=== PATIENT | female | born 1980 | race Caucasian/White ===

== ENCOUNTER 2019-10-10 06:02 | Observation (INO) | payer BC ==
--- OUTSIDE RECORDS SUMMARY | 2019-10-10 06:04 | XMS REPORT ---
:1980 [facility] [address] [place] [address] Dr. Caldwell [address] [place] [id number] Care Team Providers Name Role Phone Unavailable Unavailable Unavailable Problems This patient has no known problems. Allergies, Adverse Reactions, Alerts This patient has no known allergies or adverse reactions. Medications This patient has no known medications.
[2019-10-10] MEDS ORDERED: ONDANSETRON 4 MG/2 ML VIAL ONE ×2 (06:27→13:31)
[2019-10-10] MEDS ORDERED: MORPHINE 4 MG/ML SYR ONE (06:27)
[2019-10-10] MEDS ORDERED: NA CHLORIDE 0.9% 1,000 ML ONE (06:27)
[2019-10-10 06:35] LABS: Absolute Lymphocytes (CBC) 2.6 K/uL (0.7-4.9); Hematocrit 44.5 % (36.0-45.0); RBC Red Blood Cell Count 5.14 M/uL (3.86-4.86)
[2019-10-10 06:45] LABS: Albumin 3.8 g/dL (3.4-5.0); Bilirubin Direct 0.1 mg/dL (0-0.2); Bilirubin Total 0.2 mg/dL (0.2-1.0); Protein, Total 7.6 g/dL (6.4-8.2)
--- NOTE | 2019-10-10 07:54 | RAD REPORT ---
EXAM DESCRIPTION: CT - Abdomen Pelvis W Contrast - 10/10/2019 7:12 am CLINICAL HISTORY: Abdominal pain COMPARISON: October 10, 2019 ultrasound TECHNIQUE: Computed axial tomography of the abdomen pelvis was obtained. 100 cc Isovue-300 was admin istered intravenously. Oral contrast was not requested which limits evaluation of bowel. All CT scans are performed using dose optimization technique as appropriate and may include automated exposure control or mA/KV adjustment according to patient size. FINDINGS: Fatty liver. 3 centimeter stone within the gallbladder neck. Gallbladder wall is not thick ened. Biliary tree is normal caliber Spleen, pancreas, adrenal and right kidney appear unremarkable. 4 centimeter left renal cyst There is no evidence of diverticulitis. An abnormal appendix is not visualized Small umbilical hernia IMPRESSION: Cholelithiasis without evidence cholecystitis
--- NOTE | 2019-10-10 07:55 | RAD REPORT ---
EXAM DESCRIPTION: US - Abdomen Exam Limited - 10/10/2019 6:54 am CLINICAL HISTORY: Abdominal pain. COMPARISON: October 08, 2019 ultrasound FINDINGS: The gallbladder wall is not thickened. A 3 centimeter gallstone is present The biliary tree is normal caliber. IMPRESSION: Cholelithiasis without cholecystitis
--- NOTE | 2019-10-10 08:08 | ER ---
Nurse's Notes [facility] Name: Haydee Vela Age: 39 yrs Sex: Female : 1980 Arrival Date: 10/10/2019 Time: 06:02 Bed 8 Private MD: Diagnosis: Cholelithiasis;Unspecified abdominal pain Presentation: 10/09 06:10 Chief complaint: Patient states: "I recently had a ultrasound of my gal bladder and jd3 found out I had gal stones. Dr. Solo wanted me to come to the ER and get a CT scan and report to him my results. I am having a lot of burning pain and nausea this morning.". Coronavirus screen: The patient has NOT traveled to a country currently being monitored by the CDC within the last 14 days. The patient has NOT had contact with any known and/or suspected case of coronavirus. Proceed with normal triage procedures. Ebola Screen: Patient negative for fever greater than or equal to 101.5 degrees Fahrenheit, and additional compatible Ebola Virus Disease symptoms. Initial Sepsis Screen: Does the patient meet any 2 criteria? No. Patient's initial sepsis screen is negative. Does the patient have a suspected source of infection? No. Patient's initial sepsis screen is negative. Risk Assessment: Do you want to hurt yourself or someone else? Patient reports no desire to harm self or others. 06:10 Method Of Arrival: Ambulatory jd3 06:10 Acuity: JOSE RAUL 3 jd3 06:16 Onset of symptoms was October 10, 2019. 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 - Social history:: Smoking status: Patient reports the use of cigarette tobacco products, smokes one-half pack cigarettes per day. Screenin:14 Abuse screen: Denies threats or abuse. Denies injuries from another. Nutritional mg2 screening: No deficits noted. Tuberculosis screening: No symptoms or risk factors identified. Fall Risk IV access (20 points). Assessment: 06:14 General: Appears in no apparent distress. comfortable, Behavior is calm, cooperative. mg2 Pain: Complains of pain in abdomen Pain currently is 7 out of 10 on a pain scale. Quality of pain is described as aching, Pain began gradually, Is intermittent. Neuro: Level of Consciousness is awake, alert, obeys commands, Oriented to person, place, time, situation. Cardiovascular: Capillary refill < 3 seconds Patient's skin is warm and dry. Respiratory: Airway is patent Respiratory effort is even, unlabored, Respiratory pattern is regular, symmetrical. GI: Bowel sounds present X 4 quads. Abd is soft and non tender X 4 quads. Reports lower abdominal pain, upper abdominal pain, nausea. : No signs and/or symptoms were reported regarding the genitourinary system. EENT: No signs and/or symptoms were reported regarding the EENT system. Derm: Skin is intact, is healthy with good turgor, Skin is pink, warm \\T\\ dry. normal. Musculoskeletal: Circulation, motion, and sensation intact. Capillary refill < 3 seconds. 07:52 Reassessment: Patient appears in no apparent distress at this time. Patient and/or tw2 family updated on plan of care and expected duration. Pain level reassessed. Patient is alert, oriented x 3, equal unlabored respirations, skin warm/dry/pink. "the pain is not gone, but the edge is off" Patient states feeling better. 08:35 Reassessment: Patient appears in no apparent distress at this time. Patient and/or jl7 family updated on plan of care and expected duration. Pain level reassessed. Patient is alert, oriented x 3, equal unlabored respirations, skin warm/dry/pink. pain rated 5/10 at this time. Vital Signs: 06:15 BP 127 / 92; Pulse 107; Resp 17 S; Temp 98.2(O); Pulse Ox 100% on R/A; Weight 129.73 kg jd3 (R); Height 5 ft. 6 in. (167.64 cm) (R); Pain 7/10; 07:30 BP 109 / 70; Pulse 75; Resp 17; Pulse Ox 95% on R/A; tw2 07:52 Pain 5/10; tw2 08:29 BP 110 / 74; Pulse 89; Resp 17; Pulse Ox 99% on R/A; tw2 06:15 Body Mass Index 46.16 (129.73 kg, 167.64 cm) jd3 ED Course: 06:02 Patient arrived in ED. cl3 06:06 Eliu Loaiza PA is PHCP. jmm 06:06 Kar Schmid MD is Attending Physician. jmm 06:10 Darshan Mak, RN is Primary Nurse. jd3 06:14 Triage completed. jd3 06:14 No provider procedures requiring assistance completed. Inserted saline lock: 20 gauge mg2 in right antecubital area, using aseptic technique. Blood collected. 06:15 Patient has correct armband on for positive identification. Pulse ox on. NIBP on. Door mg2 closed. Warm blanket given. 06:15 Arm band placed on. mg2 07:00 Primary Nurse role handed off by Darshan Mak RN tw2 07:00 Marisela Melvin RN is Primary Nurse. tw2 08:06 Mathew Solo MD is Hospitalizing Provider. jmm 09:26 Patient admitted, IV remains in place. intact, No redness/swelling at site. jl7 Administered Medications: 06:30 Drug: morphine 4 mg Route: IVP; Site: right antecubital; mg2 06:54 Follow up: Response: No adverse reaction; RASS: Alert and Calm (0) mg2 06:30 Drug: Zofran (Ondansetron) 4 mg Route: IVP; Site: right antecubital; mg2 06:54 Follow up: Response: No adverse reaction mg2 06:30 Drug: NS 0.9% 1000 ml Route: IV; Rate: 1 bolus; Site: right antecubital; mg2 07:30 Follow up: Response: No adverse reaction; IV Status: Completed infusion; IV Intake: jl7 1000ml 08:15 Drug: Mefoxin 1 grams Route: IVPB; Infused Over: 3 mins; Site: right antecubital; jl7 08:18 Follow up: Response: No adverse reaction; IV Status: Completed infusion jl7 Intake: 07:30 IV: 1000ml; Total: 1000ml. jl7 Outcome: 08:07 Decision to Hospitalize by Provider. jmm 09:25 Admitted to Med/surg accompanied by tech, family with patient, via wheelchair, room jl7 430, with chart, Report called to ISHMAEL Walters 09:25 Condition: stable 09:25 Discharge instructions given to patient, family, Instructed on the need for admit, Demonstrated understanding of instructions. 09:31 Patient left the ED. [facility] Signatures: Eliu Loaiza PA PA jmm Wise, Tara, RN RN tw2 Rere Landin RN RN jl7 Darshan Mak RN RN jd3 Jamal Morales RN RN mg2 Lea Castañeda cl3
--- NOTE | 2019-10-10 08:08 | EDPHYS ---
Physician Documentation [facility] Name: Haydee Vela Age: 39 yrs Sex: Female : 1980 Arrival Date: 10/10/2019 Time: 06:02 Bed 8 Private MD: ED Physician Kar Schmid HPI: 10/09 06:16 This 39 yrs old Female presents to ER via Ambulatory with complaints of jmm Abdominal Pain. 06:16 The patient presents with abdominal pain. Onset: The symptoms/episode began/occurred jmm gradually, 2 week(s) ago. The symptoms radiate to Associated signs and symptoms: Pertinent negatives: diarrhea, vomiting. This is a 39 year old female with a history of htn that presents to the ED with complaints of epigastric abdominal pain which radiates to her back and lower abdomen. Patient was evaluated by Dr. Solo last week. Patient states the pain intensified this evening. . 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 - Social history:: Smoking status: Patient reports the use of cigarette tobacco products, smokes one-half pack cigarettes per day. ROS: 06:16 Constitutional: Negative for fever, chills, and weight loss, Cardiovascular: Negative jmm for chest pain, palpitations, and edema, Respiratory: Negative for shortness of breath, cough, wheezing, and pleuritic chest pain. 06:16 Abdomen/GI: Positive for abdominal pain. 06:16 Back: Positive for radiated pain. 06:16 All other systems are negative. Exam: 06:16 Constitutional: This is a well developed, well nourished patient who is awake, alert, jmm and in no acute distress. Head/Face: atraumatic. Eyes: EOMI, no conjunctival erythema appreciated ENT: Moist Mucus Membranes Neck: Trachea midline, Supple Chest/axilla: Normal chest wall appearance and motion. Cardiovascular: Regular rate and rhythm. No edema appreciated Respiratory: Normal respirations, no respiratory distress appreciated 06:16 Back: Normal ROM Skin: General appearance color normal MS/ Extremity: Moves all extremities, no obvious deformities appreciated, no edema noted to the lower extremities Neuro: Awake and alert, normal gait Psych: Behavior is normal, Mood is normal, Patient is cooperative and pleasant 06:16 Abdomen/GI: Inspection: obese Bowel sounds: normal, Palpation: soft, mild abdominal tenderness, in all quadrants. Vital Signs: 06:15 BP 127 / 92; Pulse 107; Resp 17 S; Temp 98.2(O); Pulse Ox 100% on R/A; Weight 129.73 kg jd3 (R); Height 5 ft. 6 in. (167.64 cm) (R); Pain 7/10; 07:30 BP 109 / 70; Pulse 75; Resp 17; Pulse Ox 95% on R/A; tw2 07:52 Pain 5/10; tw2 08:29 BP 110 / 74; Pulse 89; Resp 17; Pulse Ox 99% on R/A; tw2 06:15 Body Mass Index 46.16 (129.73 kg, 167.64 cm) jd3 MDM: 06:15 Patient medically screened. [facility] 08:05 Data reviewed: vital signs, nurses notes. Counseling: I had a detailed discussion with alex the patient and/or guardian regarding: the historical points, exam findings, and any diagnostic results supporting the discharge/admit diagnosis, radiology results, the need for further work-up and treatment in the hospital. ED course: I discussed the patient with Dr. Solo whom accepted admission. . 10/09 06:14 Order name: Basic Metabolic Panel mg2 10/09 06:14 Order name: CBC with Diff mg2 10/09 06:14 Order name: Creatinine for Radiology mg2 10/09 06:14 Order name: Hepatic Function mg2 10/09 06:14 Order name: Lipase mg2 10/09 06:42 Order name: Creatinine (Radiology Only); Complete Time: 07:11 EDMS 10/09 06:43 Order name: CBC with Automated Diff; Complete Time: 07:11 EDMS 10/09 06:46 Order name: Basic Metabolic Panel; Complete Time: 07:11 EDMS 10/09 06:46 Order name: Liver (Hepatic) Function; Complete Time: 07:11 EDMS 10/09 06:46 Order name: Lipase; Complete Time: 07:11 EDMS 10/09 06:48 Order name: Urine Dipstick--Ancillary (enter results) [facility] 10/09 06:48 Order name: Urine --Ancillary (enter results) [facility] 10/09 08:34 Order name: Urine --Ancillary EDMS 10/09 08:34 Order name: Urine Dipstick-Ancillary [facility] 10/09 06:14 Order name: IV Saline Lock; Complete Time: 06:14 [facility] [place] [place] 10/09 06:14 Order name: Labs collected and sent; Complete Time: 06:14 [facility] [place] [place] 10/09 06:16 Order name: Urine Test (obtain specimen); Complete Time: 06:16 [facility] 10/09 06:16 Order name: CT Abd/Pelvis - IV Contrast Only [facility] 10/09 06:16 Order name: US Abdomen Limited [facility] 10/09 07:56 Order name: CT; Complete Time: 08:03 [facility] 10/09 08:05 Order name: US [facility] Administered Medications: 06:30 Drug: morphine 4 mg Route: IVP; Site: right antecubital; mg2 06:54 Follow up: Response: No adverse reaction; RASS: Alert and Calm (0) mg2 06:30 Drug: Zofran (Ondansetron) 4 mg Route: IVP; Site: right antecubital; mg2 06:54 Follow up: Response: No adverse reaction mg2 06:30 Drug: NS 0.9% 1000 ml Route: IV; Rate: 1 bolus; Site: right antecubital; mg2 07:30 Follow up: Response: No adverse reaction; IV Status: Completed infusion; IV Intake: jl7 1000ml 08:15 Drug: Mefoxin 1 grams Route: IVPB; Infused Over: 3 mins; Site: right antecubital; jl7 08:18 Follow up: Response: No adverse reaction; IV Status: Completed infusion jl7 Disposition: 16:37 Co-signature as Attending Physician, Kar Schmid MD I agree with the assessment and 4 plan of care. Disposition: 10/10/19 08:07 Hospitalization ordered by Mathew Solo for Observation. Preliminary diagnosis are Cholelithiasis, Unspecified abdominal pain. - Bed requested for Telemetry/MedSurg (observation). - Status is Observation. jl7 - Condition is Stable. - Problem is an acute exacerbation. - Symptoms have improved. Signatures: Dispatcher [employer] EDMS Eliu Loaiza PA PA Rere Carreon RN RN jl7 Darshan Mak RN RN jd3 Kar Schmid MD MD tw4 Yanely Sheppard Michele, ISHMAEL QUIÑONES mg2 Corrections: (The following items were deleted from the chart) 09:08 08:07 Hospitalization Ordered by Mathew Solo MD for Observation. Preliminary eb diagnosis is Cholelithiasis; Unspecified abdominal pain. Bed requested for Telemetry/MedSurg (observation). Status is Observation. Condition is Stable. Problem is an acute exacerbation. Symptoms have improved. [facility] 09:31 09:08 10/10/2019 08:07 Hospitalization Ordered by Mathew Solo MD for Observation. jl7 Preliminary diagnosis is Cholelithiasis; Unspecified abdominal pain. Bed requested for Telemetry/MedSurg (observation). Status is Observation. Condition is Stable. Problem is an acute exacerbation. Symptoms have improved. eb
[2019-10-10] MEDS ORDERED: MORPHINE 4 MG/ML SYR IV PRN (08:10)
[2019-10-10] MEDS ORDERED: ONDANSETRON 4 MG/2 ML VIAL IV PRN ×2 (08:10→14:10)
[2019-10-10] MEDS ORDERED: ACETAMINOPHEN 500 MG TAB PO PRN (08:10)
[2019-10-10] MEDS ORDERED: CEFOXITIN/SWI 1gm 1 GM/10 ML SYR ONE (08:17)
[2019-10-10 08:33] LABS: Urine Blood TRACE (NEG); Urine Glucose NEGATIVE (NEG); Urine Protein NEGATIVE (NEG); Urine Specific Gravity >1.030 (1.005-1.030); Urine pH 5.5 (5.0-7.0)
[2019-10-10 09:36] VITALS: BMI 49.1
[2019-10-10] MEDS: D5 0.45 NS 1,000 ML IV SCH ×3 (10:04→19:45)
[2019-10-10] MEDS: CEFOXITIN/SWI 1gm 1 GM/10 ML SYR IV SCH ×3 (11:44→22:58)
--- NOTE | 2019-10-10 11:49 | P.HP ---
Date of Service: 10/10/19 PC: This 39-year-old female presents to the emergency room with severe abdominal pain for diagnosis and treatment. HPC: Patient is option feeling well off and on for the last few months. Has had pain in the upper portion of her abdomen as well as in the left and right lower quadrants. Describes it as severe hard cramping pain. PMH: Negative PSHx: Negative SOC: No known allergies SYS REVIEW: No cough, wheeze, shortness of breath. No chest pain or palpitations. Denies any urinary complaints or change in bowel habit. Has been on and off various diets throughout her life. O/E awake alert uncomfortable HEENT: Not jaundiced Chest: Chest movement equal bilaterally ABD: Soft mild discomfort in the right upper quadrant LOCO: Intact DATA: CT scan shows large gallstone near the neck of the gallbladder. IMPRESSION: Cholelithiasis with biliary colic PLAN: I will take to the operating room for laparoscopic possible open cholecystectomy. The risks of this procedure have been discussed. The possibility of bleeding, infection, injury to bile ducts blood vessels intestines has been described. The possible need for an open and/or further surgeries and discussed. She understands and wants us to proceed.
[2019-10-10] MEDS ORDERED: CEFOXITIN SODIUM 1 GM/VIAL IVPB SCH (12:00)
[2019-10-10] MEDS ORDERED: Ringers Lactate 1,000 ML IV ONE (12:00)
[2019-10-10] MEDS ORDERED: LIDOCAINE 1% MPF 5 ML VIAL ONE (12:07)
[2019-10-10] MEDS ORDERED: MIDAZOLAM HCL 2 MG/2 ML INJ ONE (12:07)
[2019-10-10] MEDS ORDERED: propofoL 200 MG/20 ML VIAL IV ONE (12:07)
[2019-10-10] MEDS ORDERED: FENTANYL CITR 100 MCG/2 ML ONE ×2 (12:07→12:51)
[2019-10-10] MEDS ORDERED: ROCURONIUM 50 MG/5 ML VIAL IV ONE (12:07)
[2019-10-10] MEDS ORDERED: NEOSTIGMINE 1 MG/ML -5 ML ONE (13:31)
[2019-10-10] MEDS ORDERED: KETOROLAC 30 MG/ML INJ ONE (13:31)
[2019-10-10] MEDS ORDERED: GLYCOPYRROLATE 0.2 MG/ML SYR ONE (13:31)
--- NOTE | 2019-10-10 13:46 | P.OP ---
Preoperative diagnosis: Cholelithiasis, biliary colic Postoperative diagnosis: The same Primary procedure: Laparoscopic cholecystectomy Secondary procedure: Cholangiogram Anesthesia: General Estimated blood loss: Less than 10 cc Specimen: 1 gallbladder and contents Operative Technique: The patient brought the operating room placed supine on the table. After the induction of adequate general endotracheal anesthesia, the area of the abdomen was prepped with a DuraPrep solution, and she was draped in usual aseptic manner. Attention was turned towards the emboli kiss. A subumbilical incision was made. This brought down through the skin and subcutaneous tissue. The Visiport was used to enter the peritoneal cavity and created pneumoperitoneum to approximately 12 mm of mercury. Under direct vision a 5 mm trocar was placed in the upper midline and 2 5s on the right lateral side of the abdomen. We were now able to visualize the right upper quadrant. We could see tense and swollen gallbladder was seen to have a mild component of edema to it. It the contents were aspirated. A grasper was now placed on the fundus of the gallbladder. With the patient placed in reverse Trendelenburg and rolled to the left we were able to see Chhaya's pouch. Applying lateral traction we dissected out and exposed the cystic duct and artery. Having obtained the critical view, a clip was now pulled placed between the gallbladder and the cystic duct. An opening was made into the cystic duct through which we obtained a normal intraoperative cholangiogram the cholangiocath was now removed. Clips were placed on the distal portion of the cystic duct. The cystic duct was now fully transected. The cystic artery was identified clipped and divided. The gallbladder was now dissected free from the liver bed, placed into an Endo-Catch , and brought out through the umbilical trocar site. At this point the abdomen is inspected to ensure adequate hemostasis. The irrigating fluid aspirated from the peritoneal cavity. The umbilical trocar site was approximated with 2 interrupted sutures of absorbable material. The pneumoperitoneum was collapsed , the sutures tied, and wilbert applied to the skin. At the end of procedure she was in a stable condition when sent to the recovery room. Needle sponge instrument count were correct. No drains were placed. Complications: None Transferred to: Recovery Room Condition: Good
[2019-10-10] MEDS: HYDROMORPHONE HCL 2 MG/ML inj ONE ×3 (13:50→14:18)
[2019-10-10] MEDS ORDERED: PROMETHAZINE INJ 25 MG/ML AMP ONE (13:53)
[2019-10-10] MEDS ORDERED: HYDROMORPHONE HCL 1 MG/ML INJ ONE (14:32)
--- NOTE | 2019-10-10 14:36 | RAD REPORT ---
EXAM DESCRIPTION: RADCholangiogram Oper-Xray Or10/10/2019 2:29 pm CLINICAL HISTORY: Abdominal pain FINDINGS: The examination was performed by Dr. Solo. The cystic duct was cannulated and contrast administered. Contrast flowed into the duodenum. The biliary tree is normal caliber without a filling defect seen. Fluoroscopy time 0.2 minutes. Seven fluoroscopic spot images obtained
[2019-10-10 14:41] VITALS: O2SAT 99
[2019-10-10] MEDS: MORPHINE 4 MG/ML SYR IV PRN ×3 (17:03→22:43)
[2019-10-11] MEDS: MORPHINE 4 MG/ML SYR IV PRN (03:02)
[2019-10-11] MEDS: CEFOXITIN/SWI 1gm 1 GM/10 ML SYR IV SCH (05:18)
[2019-10-11] MEDS: D5 0.45 NS 1,000 ML IV SCH (05:18)
[2019-10-11] MEDS: HYDROCODONE/APAP 7.5/325 MG TAB PO PRN ×2 (05:19→11:22)
[2019-10-11 11:13] VITALS: BP 100/54; TEMP 99.1
== END 2019-10-11 12:00 | disposition home or self-care (01) ==
LOC: ER 06:02 → ERHOLD 08:12 → 4TH 09:25
PROVIDERS: ADMIT Surgery; ATTEND Surgery
PROC: BF13YZZ Fluoroscopy of Gallbladder and Bile Ducts using Other Contrast (ICD-10-PCS; 2019-10-10)
PROC: 0FT44ZZ Resection of Gallbladder, Percutaneous Endoscopic Approach (ICD-10-PCS; principal; 2019-10-10 12:00)
DX: K80.10 Calculus of gallbladder with chronic cholecystitis without obstruction (principal); I10 Essential (primary) hypertension; F17.210 Nicotine dependence, cigarettes, uncomplicated; Z79.899 Other long term (current) drug therapy
CPT/HCPCS: 96361; 85025; 80048; 36415; 81025; 80076; 88304; 81003; 83690; 74177; 74300; 76705; 96375; 96374; 99285; 47563; Q9967; J2704; J2550; J2250; J1170 ×2; J3010 ×2; J2710; G0378 ×4; J7799 ×3; J7120; J7030; J2405 ×2